=== PATIENT | female | born 1980 | race Caucasian/White ===

== ENCOUNTER 2019-05-03 23:42 | Emergency (ER) | payer SELFPAY ==
[~2019-05-03] VITALS: Ht 152.4 cm; Wt 83.0 kg
[2019-05-04] MEDS ORDERED: IBUPROFEN 600MG TABLET PO ONE (06:45)
[2019-05-04] MEDS ORDERED: ACETAMINOPHEN 500MG TABLET PO ONE (06:45)
[2019-05-04 10:23] VITALS: BP 140/81
== END 2019-05-04 10:31 | disposition home or self-care (01) ==
LOC: ER 23:42
DX: S93.402A Sprain of unspecified ligament of left ankle, initial encounter (principal); M54.5 Low back pain; G43.909 Migraine, unspecified, not intractable, without status migrainosus; Z98.890 Other specified postprocedural states; W22.8XXA Striking against or struck by other objects, initial encounter; Y93.89 Activity, other specified; Y92.89 Other specified places as the place of occurrence of the external cause; Y99.8 Other external cause status
CPT/HCPCS: 73590; 73610; 81025; 99283; Z7610